=== PATIENT | female | born 1995 | race Caucasian/White ===

== ENCOUNTER 2017-03-12 11:59 | Emergency (ER) | payer OTHER ==
[~2017-03-12] VITALS: Ht 162.6 cm; Wt 68.0 kg
[~2017-03-12 11:59] MED LIST: ACYCLOVIR400 MG PO; IBUPROFEN600 MG PO; MACRODANTIN100 MG PO; PHENERGAN25 M1 RE; PHENERGAN25 MG/TAB PO; PRENATAL1 TA1 PO; ZOFRAN ODT4 MG PO; ZOFRAN4 MG/TAB PO
[2017-03-12 13:52] LABS: HEMATOCRIT 42.4 % (37.0-47.0); HEMOGLOBIN 14.2 g/dl (12.0-16.0); IMMATURE GRANULOCYTES 0.4 % (0.0-1.0); MEAN CELL VOLUME 84.6 fL CALC (80.0-100.0); MEAN CORPUSCULAR HGB 28.3 pG CALC (26.0-32.0); MEAN CORPUSCULAR HGB CONC 33.5 g/L CALC (32.0-36.0); NEUT# 2.67 thou/uL (2.00-7.15); RED BLOOD COUNT 5.01 mill/uL (4.20-5.60); RED CELL DISTRI WIDTH 12.6 % (11.5-15.5)
[2017-03-12 13:56] LABS: URINE BILIRUBIN - DIPSTICK NEGATIVE (NEGATIVE); URINE BLOOD DIPSTICK NEGATIVE (NEGATIVE); URINE COLOR YELLOW; URINE GLUCOSE - DIPSTICK NEGATIVE (NEGATIVE); URINE KETONE TRACE mg/dL (NEGATIVE); URINE LEUK ESTERASE NEGATIVE (NEGATIVE); URINE NITRITE - DIPSTICK NEGATIVE (Negative); URINE PH 5.5 (4.5-8.0); URINE PROTEIN - DIPSTICK NEGATIVE (NEG-TRACE); URINE SPECIFIC GRAVITY 1.025; URINE UROBILINOGEN - DIPSTICK 0.2 E.U./dL (0.2)
[2017-03-12 14:03] LABS: URINE CLARITY CLEAR
[2017-03-12 14:15] LABS: ALBUMIN 4.1 g/dL (3.2-5.0); ALKALINE PHOSPHATASE 90 u/l (38-126); AMYLASE 61 u/l (30-110); ANION GAP 16 (6-22 (CALC)); BILIRUBIN, TOTAL 0.4 mg/dL (0.0-1.4); BUN 11 mg/dL (7-17); BUN/CREATININE RATIO 16 (12-20 (CALC)); CALCIUM 9.2 mg/dL (8.4-10.2); CARBON DIOXIDE 24 mmol/l (22-30); CHLORIDE 107 mmol/l (95-108); CREATININE 0.7 mg/dL (0.5-1.0); GFR > 60 ML/MIN (>=60 (CALC)); GFR FOR AFR.AMER. > 60 ML/MIN (>=60 (CALC)); GLUCOSE 81 mg/dL (65-105); LIPASE 67 u/l (23-300); POTASSIUM 4.1 mmol/l (3.5-5.1); SGOT/AST 19 u/l (14-36); SGPT/ALT 32 u/l (9-52); SODIUM 143 mmol/l (137-146)
[2017-03-12] MEDS ORDERED: ULTRAM50 M1 PO (16:05)
[2017-03-12] MEDS ORDERED: PREVACID30 M1 PO (16:05)
[2017-03-12] MEDS ORDERED: FLEXERIL PO (16:12)
[2017-03-12 16:21] VITALS: BP 110/67
== END 2017-03-12 16:28 | disposition home or self-care (01) | DRG 392 ==
LOC: ED 11:59
PROVIDERS: Emergency Medicine
DX: R10.13 Epigastric pain (principal); K80.80 Other cholelithiasis without obstruction; M79.1 Myalgia; R11.0 Nausea

== ENCOUNTER 2017-07-12 00:59 | Emergency (ER) | payer OTHER ==
[~2017-07-12] VITALS: Ht 162.6 cm; Wt 67.8 kg
[~2017-07-12 00:59] MED LIST changes: +FLEXERIL PO; +PREVACID30 M1 PO; +ULTRAM50 M1 PO
[2017-07-12 02:09] LABS: HEMATOCRIT 40.8 % (37.0-47.0); HEMOGLOBIN 13.9 g/dl (12.0-16.0); IMMATURE GRANULOCYTES 0.3 % (0.0-1.0); MEAN CELL VOLUME 84.8 fL CALC (80.0-100.0); MEAN CORPUSCULAR HGB 28.9 pG CALC (26.0-32.0); MEAN CORPUSCULAR HGB CONC 34.1 g/L CALC (32.0-36.0); NEUT# 3.77 thou/uL (2.00-7.15); RED BLOOD COUNT 4.81 mill/uL (4.20-5.60); RED CELL DISTRI WIDTH 12.8 % (11.5-15.5)
[2017-07-12 02:15] LABS: URINE BILIRUBIN - DIPSTICK NEGATIVE (NEGATIVE); URINE BLOOD DIPSTICK NEGATIVE (NEGATIVE); URINE COLOR YELLOW; URINE GLUCOSE - DIPSTICK NEGATIVE (NEGATIVE); URINE KETONE NEGATIVE (NEGATIVE); URINE LEUK ESTERASE NEGATIVE (NEGATIVE); URINE NITRITE - DIPSTICK NEGATIVE (Negative); URINE PROTEIN - DIPSTICK NEGATIVE (NEG-TRACE); URINE UROBILINOGEN - DIPSTICK 0.2 E.U./dL (0.2)
[2017-07-12 02:17] LABS: URINE CLARITY CLEAR
[2017-07-12 02:19] LABS: ALBUMIN 4.2 g/dL (3.2-5.0); ALKALINE PHOSPHATASE 98 u/l (38-126); ANION GAP 17 (6-22 (CALC)); BILIRUBIN, TOTAL 0.3 mg/dL (0.0-1.4); BUN 12 mg/dL (7-17); BUN/CREATININE RATIO 16 (12-20 (CALC)); CARBON DIOXIDE 26 mmol/l (22-30); CHLORIDE 104 mmol/l (95-108); CREATININE 0.8 mg/dL (0.5-1.0); GFR > 60 ML/MIN (>=60 (CALC)); GFR FOR AFR.AMER. > 60 ML/MIN (>=60 (CALC)); POTASSIUM 4.3 mmol/l (3.5-5.1); SGOT/AST 18 u/l (14-36); SGPT/ALT 27 u/l (9-52); SODIUM 142 mmol/l (137-146); TOTAL PROTEIN 7.2 g/dL (6.3-8.2)
[2017-07-12 02:53] LABS: BETA-HCG, QUANT(RESULT NUMBER) 624 mIU/mL
[2017-07-12 03:20] VITALS: BP 109/64
[2017-07-12] MEDS ORDERED: PNV PRENATAL PL1 TAB PO (03:36)
== END 2017-07-12 03:26 | disposition home or self-care (01) | DRG 392 ==
LOC: ED 00:59
PROVIDERS: Emergency Medicine
DX: R10.2 Pelvic and perineal pain (principal)

== ENCOUNTER 2017-08-05 17:10 | Emergency (ER) | payer OTHER ==
[~2017-08-05] VITALS: Ht 162.6 cm; Wt 66.0 kg
[~2017-08-05 17:10] MED LIST changes: +PNV PRENATAL PL1 TAB PO
[2017-08-05 17:54] LABS: URINE BLOOD DIPSTICK NEGATIVE (NEGATIVE); URINE COLOR YELLOW; URINE GLUCOSE - DIPSTICK NEGATIVE (NEGATIVE); URINE KETONE NEGATIVE (NEGATIVE); URINE LEUK ESTERASE TRACE (NEGATIVE); URINE NITRITE - DIPSTICK NEGATIVE (Negative); URINE PH 6.5 (4.5-8.0); URINE PROTEIN - DIPSTICK TRACE mg/dL (NEG-TRACE); URINE SPECIFIC GRAVITY 1.025; URINE UROBILINOGEN - DIPSTICK 0.2 E.U./dL (0.2)
[2017-08-05 17:55] LABS: URINE BILIRUBIN - DIPSTICK NEGATIVE (NEGATIVE); URINE CLARITY SL CLOUDY
[2017-08-05] MEDS ORDERED: ZOFRAN4 MG/TAB PO (18:02)
[2017-08-05 18:22] VITALS: BP 111/72
== END 2017-08-05 18:22 | disposition home or self-care (01) | DRG 781 ==
LOC: ED 17:10
PROVIDERS: Emergency Medicine
DX: O21.0 Mild hyperemesis gravidarum (principal); Z3A.08 8 weeks gestation of pregnancy

== ENCOUNTER 2018-02-02 11:49 | Emergency (ER) | payer OTHER ==
[~2018-02-02] VITALS: Ht 162.6 cm; Wt 70.0 kg
[2018-02-02 12:06] VITALS: BP 134/77
== END 2018-02-02 12:15 ==
LOC: ED 11:49
DX: O26.893 Other specified pregnancy related conditions, third trimester (principal); R10.10 Upper abdominal pain, unspecified; Z3A.34 34 weeks gestation of pregnancy

== ENCOUNTER 2018-09-17 07:38 | Emergency (ER) | payer OTHER ==
[~2018-09-17] VITALS: Ht 162.6 cm; Wt 65.0 kg
[2018-09-17] MEDS ORDERED: VOLTAREN - GENE75 MG PO (08:06)
== END 2018-09-17 08:34 | disposition home or self-care (01) ==
LOC: ED 07:38
DX: S39.012A Strain of muscle, fascia and tendon of lower back, initial encounter (principal); X50.0XXA Overexertion from strenuous movement or load, initial encounter

== ENCOUNTER 2019-01-21 11:25 | Emergency (ER) | payer OTHER ==
[~2019-01-21] VITALS: Ht 162.6 cm; Wt 69.8 kg
[~2019-01-21 11:25] MED LIST changes: +VOLTAREN - GENE75 MG PO
[2019-01-21] MEDS ORDERED: FIORICET PO (14:42)
[2019-01-21 14:49] VITALS: BP 116/69
== END 2019-01-21 15:02 | disposition home or self-care (01) ==
LOC: ED 11:25
DX: G43.909 Migraine, unspecified, not intractable, without status migrainosus (principal); R11.0 Nausea; H53.8 Other visual disturbances

== ENCOUNTER 2019-07-19 16:59 | Emergency (ER) | payer OTHER ==
[~2019-07-19 16:59] MED LIST changes: +FIORICET PO
[2019-07-19 20:10] VITALS: BP 106/54
== END 2019-07-19 20:10 | disposition home or self-care (01) ==
LOC: ED 16:59
DX: L55.0 Sunburn of first degree (principal)

== ENCOUNTER 2021-07-25 22:47 | Emergency (ER) | payer OTHER ==
[~2021-07-25] VITALS: Ht 160 cm; Wt 86.0 kg
[2021-07-25 23:02] VITALS: BP 119/75
[2021-07-25 23:30] VITALS: BP 113/78
[2021-07-25 23:39] LABS: HEMATOCRIT 42.5 % (37.0-47.0); HEMOGLOBIN 13.6 g/dl (12.0-16.0); IMMATURE GRANULOCYTES 0.1 % (0.0-5.0); MEAN CORPUSCULAR HGB 26.3 pG CALC (26.0-32.0); NEUT# 7.9 thou/uL (2.00-7.15); RED BLOOD COUNT 5.18 mill/uL (4.20-5.60); RED CELL DISTRI WIDTH 14.9 % (11.5-15.5)
[2021-07-25 23:43] LABS: URINE BILIRUBIN - DIPSTICK NEGATIVE (NEGATIVE); URINE BLOOD DIPSTICK MODERATE (NEGATIVE); URINE COLOR YELLOW; URINE KETONE TRACE mg/dL (NEGATIVE); URINE PH 7.5 (4.5-8.0); URINE PROTEIN - DIPSTICK 100 mg/dL (NEG-TRACE); URINE UROBILINOGEN - DIPSTICK 0.2 E.U./dL (0.2)
[2021-07-26 00:01] LABS: URINE LEUK ESTERASE SMALL (NEGATIVE); URINE NITRITE - DIPSTICK NEGATIVE (Negative)
[2021-07-26 00:02] LABS: ALBUMIN 4.5 g/dL (3.2-5.0); ALKALINE PHOSPHATASE 134 u/l (38-126); ANION GAP 12 (6-22 (CALC)); BILIRUBIN, TOTAL 0.3 mg/dL (0.0-1.4); BUN 10 mg/dL (7-17); BUN/CREATININE RATIO 13 (12-20 (CALC)); CARBON DIOXIDE 27 mmol/l (22-30); CHLORIDE 103 mmol/l (95-108); CREATININE 0.8 mg/dL (0.5-1.0); GFR > 60 ML/MIN (>=60 (CALC)); GFR FOR AFR.AMER. > 60 ML/MIN (>=60 (CALC)); LIPASE 44 u/l (23-300); POTASSIUM 3.6 mmol/l (3.5-5.1); SGOT/AST 23 u/l (14-36); SODIUM 139 mmol/l (137-146); TOTAL PROTEIN 8.4 g/dL (6.3-8.2)
[2021-07-26 00:04] LABS: URINE GLUCOSE - DIPSTICK NEGATIVE (NEGATIVE)
[2021-07-26 00:05] LABS: URINE RBC 25-50 RBC/hpf (0-5)
[2021-07-26 00:06] LABS: URINE BACTERIA MODERATE hpf; URINE EPITHELIAL CELLS MANY EPI/hpf (0-FEW); URINE WBC 50-100 WBC/hpf (0-5)
[2021-07-26 00:10] VITALS: BP 94/48
[2021-07-26 00:13] VITALS: BP 104/55
[2021-07-26] MEDS ORDERED: BACTRIM DS1 TAB PO (00:19)
[2021-07-26] MEDS ORDERED: PHENERGAN25 MG PO (00:19)
[2021-07-26 00:30] VITALS: BP 112/69
== END 2021-07-26 00:42 | disposition home or self-care (01) ==
LOC: ED 22:47
DX: N39.0 Urinary tract infection, site not specified (principal); B96.89 Other specified bacterial agents as the cause of diseases classified elsewhere; F17.200 Nicotine dependence, unspecified, uncomplicated

== ENCOUNTER → 2021-10-21 | Emergency (ER) | payer OTHER ==
[~2021-10-21] VITALS: Ht 160 cm; Wt 65.0 kg
[~2021-10-21] MED LIST changes: +BACTRIM DS1 TAB PO; +CLEOCIN300 MG PO; +PHENERGAN25 MG PO
[2021-10-21 10:35] VITALS: BP 122/85
[2021-10-21 20:55] VITALS: BP 97/65
[2021-10-21 21:01] VITALS: BP 100/55
== END | disposition home or self-care (01) ==
LOC: ED 10:29
DX: K08.89 Other specified disorders of teeth and supporting structures (principal); Z87.891 Personal history of nicotine dependence

== ENCOUNTER 2023-12-10 04:49 | Emergency (ER) | payer OTHER ==
[~2023-12-10] VITALS: Ht 160 cm; Wt 82.0 kg
[2023-12-10] MEDS ORDERED: ACETAMINOPHEN 500 MG TAB PO ONE (05:05)
[2023-12-10] MEDS ORDERED: IBUPROFEN 600 MG/TAB PO ONE (05:05)
[2023-12-10] MEDS ORDERED: ONDANSETRON 4 MG/TAB ODT PO ONE (05:30)
[2023-12-10 05:40] LABS: BASO% 0.3 % (0-3); EOS% 5.5 % (0-8); HEMATOCRIT 45.9 % (37.0-47.0); HEMOGLOBIN 15.3 g/dl (12.0-16.0); IMMATURE GRANULOCYTES 0.9 % (0.0-5.0); MEAN CELL VOLUME 85.6 fL CALC (80.0-100.0); MEAN CORPUSCULAR HGB 28.5 pG CALC (26.0-32.0); MEAN CORPUSCULAR HGB CONC 33.3 g/dL CAL (32.0-36.0); MONO% 8.3 % (2-13); NEUT# 5.64 thou/uL (2.00-7.15); RED BLOOD COUNT 5.36 mill/uL (4.20-5.60); RED CELL DISTRI WIDTH 12.3 % (11.5-15.5)
[2023-12-10 06:20] VITALS: BP 132/79
== END 2023-12-10 06:27 | disposition home or self-care (01) ==
LOC: ED 04:49
PROVIDERS: Family Medicine
DX: J06.9 Acute upper respiratory infection, unspecified (principal); Z20.822 Contact with and (suspected) exposure to COVID-19